=== PATIENT | female | born 2000 | race Two or more races ===

== ENCOUNTER 2021-02-23 08:34 | Emergency (ER) | payer OTHER ==
[~2021-02-23] VITALS: Ht 165.1 cm; Wt 50.0 kg
[2021-02-23 10:10] VITALS: BP 111/75
== END 2021-02-23 10:13 ==
LOC: EMS 08:38
DX: Z11.1 Encounter for screening for respiratory tuberculosis (principal)
CPT/HCPCS: 71045; 99283